=== PATIENT | female | born 1995 | race Caucasian/White ===

== ENCOUNTER 2022-10-24 13:25 | Emergency (ER) | payer OTHER ==
[~2022-10-24] VITALS: Ht 162.6 cm; Wt 59.0 kg
--- NOTE | 2022-10-24 14:04 | NUR ---
BLOOD SAMPLE OBTAINED
--- NOTE | 2022-10-24 14:04 | NUR ---
ESTABLISHED IV LINE LEFT AC 20G ,
--- NOTE | 2022-10-24 14:16 | NUR ---
URINE SAMPLE COLLECTED AND SENT TO LAB
[2022-10-24] MEDS ORDERED: ONDANSETRON HCL/PF 4 MG/2 ML VIAL ONE (14:18)
[2022-10-24 14:28] LABS: BASOPHILS # (AUTO) 0.1 K/uL (0.0-0.2); BASOPHILS % (AUTO) 0.5 % (0.0-2.0); EOSINOPHILS % (AUTO) 0.1 % (0.0-6.0); HEMATOCRIT 46 % (33-45); HEMOGLOBIN 15.4 g/dL (11.5-14.8); LYMPHOCYTES # (AUTO) 0.2 K/uL (0.8-4.8); MEAN CORPUSCULAR HGB CONC 33 g/dl (31.0-36.0); MEAN CORPUSCULAR VOLUME 89 fL (82-100); MONOCYTES # (AUTO) 0.4 K/uL (0.1-1.30); MONOCYTES % (AUTO) 3.6 % (2.0-12.0); NEUTROPHILS # (AUTO) 11.3 K/uL (1.8-8.9); NEUTROPHILS % (AUTO) 93.8 % (43.0-81.0); PLATELET COUNT (AUTO) 270 K/uL (150-450); RED BLOOD CELL COUNT(AUTO) 5.17 MIL/uL (4.0-5.2)
[2022-10-24] MEDS ORDERED: IV NS 0.9% 1,000 ML IV ONE (14:30)
[2022-10-24] MEDS ORDERED: ONDANSETRON HCL/PF 4 MG/2 ML VIAL IV ONE (14:30)
[2022-10-24 14:34] LABS: CALCIUM, SERUM 9.9 mg/dL (8.5-10.1); POTASSIUM 4.4 mmol/L (3.5-5.1)
[2022-10-24] MEDS ORDERED: ONDA4TAB5 PO (15:37)
--- NOTE | 2022-10-24 15:58 | NUR ---
IV removed. Catheter intact and site benign. Pressure and 4x4 applied to site. No bleeding noted.
--- NOTE | 2022-10-24 16:02 | NUR ---
Patient discharged to home in stable condition. Written and verbal after care instructions given. Patient verbalizes understanding of instruction.
[2022-10-24 16:03] VITALS: BP 110/66
== END 2022-10-24 16:04 | disposition home or self-care (01) ==
LOC: ER 13:57
DX: K52.9 Noninfective gastroenteritis and colitis, unspecified (principal); Z91.013 Allergy to seafood
CPT/HCPCS: 99283; 96374; 96361; 85025; 80048; 84703; 36415; J2405; J7030